=== PATIENT | male | born 1990 | race African-American/Black ===

== ENCOUNTER 2016-06-30 18:14 | Emergency (ER) | payer MEDICARE ==
[2016-06-30] MEDS ORDERED: Ibuprofen 800 MG TAB ONE (18:27)
== END 2016-06-30 19:20 | disposition home or self-care (01) ==
LOC: NAV ERS 18:14
DX: J11.1 Influenza due to unidentified influenza virus with other respiratory manifestations (principal); L70.0 Acne vulgaris; J45.909 Unspecified asthma, uncomplicated; F32.9 Major depressive disorder, single episode, unspecified; F17.210 Nicotine dependence, cigarettes, uncomplicated; Z79.899 Other long term (current) drug therapy
CPT/HCPCS: 87430; 99283

== ENCOUNTER 2016-07-18 20:51 | Emergency (ER) | payer MEDICARE | END 2016-07-18 21:49 | disposition home or self-care (01) | LOC: NAV ERS 20:51 | DX: K02.9 Dental caries, unspecified (principal); J45.909 Unspecified asthma, uncomplicated; F32.9 Major depressive disorder, single episode, unspecified; F41.9 Anxiety disorder, unspecified; F17.210 Nicotine dependence, cigarettes, uncomplicated | CPT/HCPCS: 99282 ==

== ENCOUNTER 2017-02-09 21:10 | Emergency (ER) | payer MEDICARE | END 2017-02-09 21:41 | disposition home or self-care (01) | LOC: NAV ERS 21:10 | DX: S00.03XA Contusion of scalp, initial encounter (principal); S00.83XA Contusion of other part of head, initial encounter; S80.02XA Contusion of left knee, initial encounter; S80.01XA Contusion of right knee, initial encounter; S20.219A Contusion of unspecified front wall of thorax, initial encounter; F12.10 Cannabis abuse, uncomplicated; J45.909 Unspecified asthma, uncomplicated; F41.9 Anxiety disorder, unspecified; F32.9 Major depressive disorder, single episode, unspecified; F17.210 Nicotine dependence, cigarettes, uncomplicated; Z79.899 Other long term (current) drug therapy; W14.XXXA Fall from tree, initial encounter; Y93.H2 Activity, gardening and landscaping | CPT/HCPCS: 99283 ==

== ENCOUNTER 2017-04-25 22:24 | Emergency (ER) | payer MEDICARE ==
[2017-04-25] MEDS ORDERED: Bacitracin Zinc 1 Packet ONE (23:46)
== END 2017-04-25 23:55 | disposition home or self-care (01) ==
LOC: NAV ERS 22:24
DX: M27.2 Inflammatory conditions of jaws (principal); L05.91 Pilonidal cyst without abscess; F31.9 Bipolar disorder, unspecified; F41.9 Anxiety disorder, unspecified; F17.210 Nicotine dependence, cigarettes, uncomplicated; J45.909 Unspecified asthma, uncomplicated
CPT/HCPCS: 10060

== ENCOUNTER 2017-12-09 00:33 | Emergency (ER) | payer MEDICARE, MEDICAID ==
[2017-12-09] MEDS ORDERED: Sulfameth/Trimethoprim DS 800-160mg TAB ONE (00:57)
[2017-12-09] MEDS ORDERED: Ondansetron HCl/PF 4 MG/2 ML Vial ONE (00:57)
[2017-12-09] MEDS ORDERED: Ketorolac Tromethamine 30 MG/ML VIAL ONE (00:57)
[2017-12-09] MEDS ORDERED: Sodium Chloride 0.9% 250 ML 500 ML ONE (00:57)
== END 2017-12-09 03:15 | disposition home or self-care (01) ==
LOC: NAV ERS 00:33
DX: L02.11 Cutaneous abscess of neck (principal); B95.62 Methicillin resistant Staphylococcus aureus infection as the cause of diseases classified elsewhere; L73.9 Follicular disorder, unspecified; J45.909 Unspecified asthma, uncomplicated; F41.9 Anxiety disorder, unspecified; F31.9 Bipolar disorder, unspecified; F20.9 Schizophrenia, unspecified; F17.210 Nicotine dependence, cigarettes, uncomplicated
CPT/HCPCS: 96365; 96366; 96375; J1885; J2405; J3370; J7050

== ENCOUNTER 2018-05-09 11:05 | Emergency (ER) | payer MEDICARE, MEDICAID ==
[2018-05-09] MEDS ORDERED: Lidocaine 1% (PF) 30 ML VIAL ONE (11:39)
[2018-05-09] MEDS ORDERED: Adacel (T-DAP) 0.5 ML SYRINGE ONE (11:59)
== END 2018-05-09 12:18 | disposition home or self-care (01) ==
LOC: NAV ERS 11:05
DX: L02.422 Furuncle of left axilla (principal); F20.9 Schizophrenia, unspecified; F31.9 Bipolar disorder, unspecified; J45.909 Unspecified asthma, uncomplicated; F17.210 Nicotine dependence, cigarettes, uncomplicated
CPT/HCPCS: 10061; 87070; 87205; 90471; 90715; J2001

== ENCOUNTER 2018-09-25 23:39 | Emergency (ER) | payer MEDICARE, MEDICAID ==
[2018-09-26] MEDS ORDERED: Lidocaine 1% (PF) 30 ML VIAL ONE (00:19)
[2018-09-26] MEDS ORDERED: traMADol HCl 50 MG TAB ONE (00:35)
[2018-09-26] MEDS ORDERED: Sulfameth/Trimethoprim DS 800-160mg TAB ONE (00:35)
== END 2018-09-26 00:55 | disposition home or self-care (01) ==
LOC: NAV ERS 23:39
DX: M27.2 Inflammatory conditions of jaws (principal); J45.909 Unspecified asthma, uncomplicated; F41.9 Anxiety disorder, unspecified; F31.9 Bipolar disorder, unspecified; F20.9 Schizophrenia, unspecified; F17.210 Nicotine dependence, cigarettes, uncomplicated
CPT/HCPCS: 10060; 87070; 87205; J2001

== ENCOUNTER 2018-12-16 14:11 | Emergency (ER) | payer MEDICARE, MEDICAID ==
[2018-12-16] MEDS ORDERED: Lidocaine 1% w/Epinephrine 1:100K 30 ML VIAL ONE (14:25)
== END 2018-12-16 14:45 | disposition home or self-care (01) ==
LOC: NAV ERS 14:11
DX: L02.01 Cutaneous abscess of face (principal); J45.909 Unspecified asthma, uncomplicated; F17.210 Nicotine dependence, cigarettes, uncomplicated; F41.9 Anxiety disorder, unspecified; F31.9 Bipolar disorder, unspecified; F20.9 Schizophrenia, unspecified
CPT/HCPCS: 10060; J2001

== ENCOUNTER 2019-05-02 00:20 | Emergency (ER) | payer MEDICARE, MEDICAID | END 2019-05-02 00:42 | disposition home or self-care (01) | LOC: NAV ERS 00:20 | DX: L98.9 Disorder of the skin and subcutaneous tissue, unspecified (principal); I10 Essential (primary) hypertension; J45.909 Unspecified asthma, uncomplicated; F31.9 Bipolar disorder, unspecified; F41.9 Anxiety disorder, unspecified; F17.210 Nicotine dependence, cigarettes, uncomplicated | CPT/HCPCS: 99281 ==

== ENCOUNTER 2019-10-28 22:21 | Emergency (ER) | payer MEDICARE, MEDICAID ==
[2019-10-28] MEDS ORDERED: Sulfameth/Trimethoprim DS 800-160mg TAB ONE (22:42)
[2019-10-28] MEDS ORDERED: cefTRIAXone\\ROCEPHIN 1 GM VIAL ONE (22:42)
[2019-10-28] MEDS ORDERED: Lidocaine 1% (PF) 30 ML VIAL ONE (22:42)
[2019-10-28] MEDS ORDERED: Acetaminophen 500 MG TAB ONE (22:42)
== END 2019-10-28 23:05 ==
LOC: NAV ERS 22:21 → EEVIPCON 22:21 → NAV ERS 23:05
DX: L03.211 Cellulitis of face (principal); J45.909 Unspecified asthma, uncomplicated; F41.9 Anxiety disorder, unspecified; F17.210 Nicotine dependence, cigarettes, uncomplicated; Z79.899 Other long term (current) drug therapy
CPT/HCPCS: 96372; 99283; J0696; J2001

== ENCOUNTER 2020-01-15 11:29 | Emergency (ER) | payer MEDICARE, MEDICAID ==
[2020-01-15] MEDS ORDERED: Lidocaine 1% w/Epinephrine 1:100K 30 ML VIAL ONE (11:44)
[2020-01-15] MEDS ORDERED: Adacel (T-DAP) 0.5 ML SYRINGE ONE (12:03)
[2020-01-15] MEDS ORDERED: cefTRIAXone\\ROCEPHIN 1 GM VIAL ONE (12:03)
== END 2020-01-15 12:27 ==
LOC: NAV ERS 11:29
DX: L02.01 Cutaneous abscess of face (principal); J45.909 Unspecified asthma, uncomplicated; F41.9 Anxiety disorder, unspecified; F31.9 Bipolar disorder, unspecified; F20.9 Schizophrenia, unspecified; F17.210 Nicotine dependence, cigarettes, uncomplicated; Z79.899 Other long term (current) drug therapy
CPT/HCPCS: 10060; 87070; 87205; 90471; 90715; 96372; J0696; J2001

== ENCOUNTER 2025-05-09 11:44 | Emergency (ER) | payer MEDICARE ==
[2025-05-09] MEDS ORDERED: Fluconazole 100 MG TAB ONE (12:27)
== END 2025-05-09 12:38 | disposition home or self-care (01) ==
LOC: NAV ERS 11:44
DX: B35.6 Tinea cruris (principal); F17.210 Nicotine dependence, cigarettes, uncomplicated
CPT/HCPCS: 99282